=== PATIENT | female | born 1970 | race Caucasian/White ===

== ENCOUNTER 2019-09-15 10:48 | Emergency (ER) | payer OTHER ==
--- NOTE | 2019-09-15 10:55 | ED ---
Adult Trauma - HPI Summary HPI Summary: This patient is a 49 year old female brought in by EMS presenting to [facility] with a chief complaint of injuries after a fall an hour [employer]. She states she was walking down the stairs and says she was going to fast when she lost her balance and fell down the stairs. She states she landed on her right side and complains of right shoulder and back pain. She denies LOC. She reports mild chest pain and SOB. She denies headache. She states a Hx of HTN. - History of Current Complaint Stated Complaint: FALL/BACK INJ PER EMS Hx Obtained From: Patient Hx Last Menstrual Period: DOESN'T GET Mechanism of Injury: Fall Onset/Duration: Started Hours Ago Pain Intensity: 9 Pain Scale Used: 0-10 Numeric - Allergy/Home Medications Allergies/Adverse Reactions: Allergies Allergy/AdvReac Type Severity Reaction Status Date / Time Penicillins Allergy Itching Verified 09/15/19 10:56 Home Medications: Home Medications FLUoxetine CAP* [PROzac CAP*] 40 mg PO DAILY 09/15/19 [History Confirmed ] PMH/Surg Hx/FS Hx/Imm Hx Endocrine/Hematology History: Denies: Hx Diabetes, Hx Thyroid Disease Cardiovascular History: Reports: Hx Hypertension Respiratory History: Denies: Hx Asthma, Hx Chronic Obstructive Pulmonary Disease (COPD) GI History: Denies: Hx Ulcer Infectious Disease History: Denies: Hx Hepatitis, Hx Human Immunodeficiency Virus (HIV) - Social History Substance Use Type: Reports: None Review of Systems Positive: Chest Pain Positive: Shortness Of Breath Positive: Other - Shoulder/back pain All Other Systems Reviewed And Are Negative: Yes Physical Exam - Summary Physical Exam Summary: Constitutional: Well-developed, Well-nourished, Alert, Cooperative Skin: Warm, Dry HENT: Normocephalic; No Racoons eyes; No green's sign; No abrasion; No contusion; No hemotympanum; No maxilla facial tenderness or instability; Dentition are smooth; No dental trauma; No trismus Eyes: EOM normal, PERRL Neck: Trachea is midline. No stridor; No JVD; No step off; No posterior cervical spine tenderness Cardio: Rhythm regular, rate normal Heart sounds normal; Intact distal pulses. Radial pulses are 2+ and symmetric. Pulmonary/Chest wall: Effort normal; Breath sounds normal; Equal chest rise; No flail segment; No rib tenderness; No sternal tenderness Abd: Soft, Appearance normal. No distension; No tenderness; No palpable pulsatile mass; No Cullens sign; No Munoz-Turners sign Musculoskeletal: Full ROM and no tenderness at hips, ankles, elbows and knees; No joint swelling; No vertebral body tenderness; No paraspinal tenderness; No step off or deformity of the spine; Pelvis is stable to lateral compression and rock. Right shoulder tenderness, right upper back tenderness. Neuro: Alert, Oriented x3, Strength 5/5 all extremities. : No blood at urethral meatus Psych: Mood and affect Normal Triage Information Reviewed: Yes Vital Signs On Initial Exam: Temp Pulse Resp BP Pulse Ox 97.2 F 59 19 139/89 98 09/15/19 10:49 09/15/19 10:49 09/15/19 10:49 09/15/19 10:49 09/15/19 10:49 Vital Signs Reviewed: Yes Procedures - Sedation Patient Received Moderate/Deep Sedation with Procedure: No Diagnostics - Laboratory Lab Statement: Any lab studies that have been ordered have been reviewed, and results considered in the medical decision making process. - CT Cerical Spine CT Interpretation Completed By: Radiologist Summary of CT Findings: 1. No CT evidence of acute fracture or dislocation. 2. Nonspecific straightening ot the normal cervical lordosis which could be seeen in the setting of muscle spasm or simply be the consequence of positioning. 3. Age-appropriate degenerative changes. ED Physician has reviewed this report. 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 CT cervical spine reveals 1. No CT evidence of acute fracture or dislocation. 2. Nonspecific straightening ot the normal cervical lordosis which could be seeen in the setting of muscle spasm or simply be the consequence of positioning. 3. Age-appropriate degenerative changes. - Diagnoses Provider Diagnoses: Fall, Back strain Discharge ED - Sign-Out/Discharge Documenting (check all that apply): Patient Departure - Discharge - Discharge Plan Condition: Stable Disposition: HOME Forms: *Work Release Referrals: Kiran GUPTA,Shyam Garcia [Primary Care Provider] - Additional Instructions: Return to ED with new or worsening symptoms. - Attestation Statements Document Initiated by Scribe: Yes Documenting Scribe: Obinna Rubalcava Provider For Whom Scribe is Documenting (Include Credential): Rickie Alegre DO Scribe Attestation: I, Obinna Rubalcava, scribed for Rickie Alegre DO on 09/15/19 at 1426. Status of Scribe Document: Ready
[2019-09-15] MEDS ORDERED: Acetaminophen TAB* 325 MG PO ONE (11:01)
[2019-09-15] MEDS ORDERED: Cyclobenzaprine TAB* 10 MG PO ONE (11:09)
[2019-09-15 14:42] VITALS: BP 108/71
== END 2019-09-15 14:41 | disposition home or self-care (01) ==
LOC: ED 10:48
DX: S39.012A Strain of muscle, fascia and tendon of lower back, initial encounter (principal); I10 Essential (primary) hypertension; R06.02 Shortness of breath; R07.9 Chest pain, unspecified; W10.9XXA Fall (on) (from) unspecified stairs and steps, initial encounter; Y92.9 Unspecified place or not applicable; Z88.0 Allergy status to penicillin
CPT/HCPCS: 72070; 72100; 72125; 99283; A9270-GY